=== PATIENT | female | born 1995 | race African-American/Black ===

== ENCOUNTER 2020-04-09 06:16 | Outpatient (CLI) | payer OTHER, SELFPAY ==
[2020-04-09 18:35] LABS: SARS-CoV-2 RNA PCR Negative
== END 2020-04-09 06:17 | disposition home or self-care (01) ==
LOC: ANHCOVIDDT 06:17
PROVIDERS: Visit Provider Obstetrics & Gynecology
DX: Z01.818 Encounter for other preprocedural examination (principal); O02.1 Missed abortion; Z11.59 Encounter for screening for other viral diseases
CPT/HCPCS: 87635; U0003

== ENCOUNTER 2020-04-09 09:18 | Outpatient (CLI) | payer OTHER, SELFPAY | END 2020-04-09 09:19 | disposition home or self-care (01) | LOC: ANHSURGERY 09:27 | PROVIDERS: PCP Internal Medicine Gastroenterology; Visit Provider Obstetrics & Gynecology | DX: O02.1 Missed abortion (principal) | CPT/HCPCS: 36415; 86900; 86901 ==

== ENCOUNTER 2020-04-10 00:51 | Day surgery (SDC) | payer OTHER, SELFPAY ==
[2020-04-08 12:23] VITALS: BMI 21.8
[2020-04-10 09:45] VITALS: BP 123/71; PULSE 87; RESP 16; TEMP 37.2; O2SAT 100
[2020-04-10] MEDS: IBUPROFEN IV 800 MG/200 ML 800 MG/200 ML BAG 400 MG IVPB (10:05)
--- NOTE | 2020-04-10 10:32 | WPDANESEPPF ---
Anes - Initial Pre Proc Eval Procedure: Operation Date: 04/10/20 11:30 Proposed Procedures p Suction Dilatation and Curettage - Jose J Collier MD Date/Time: 04/10/20 10:32 Surgeon: Jose J Collier MD Pre Op Diagnosis: missed ab Patient Data Age: 25 Gender: F Height: 5 ft 4 in Weight: 54.45 kg Last Vital Signs Temp 37.2 C 04/10/20 09:45 Pulse 87 04/10/20 09:45 Resp 16 04/10/20 09:45 BP 123/71 04/10/20 09:45 Pulse Ox 100 04/10/20 09:45 Allergies Allergy/AdvReac Type Severity Reaction Status Date / Time No Known Allergies Allergy Unverified 04/08/20 12:07 Home Medications Medication Instructions Recorded Confirmed Type No Home Medications 04/08/20 04/08/20 History Patient hx anesthesia problems: none Family hx anesthesia problems: none [facility] Family History Family History Mother Patient's mother is in good health Father Patient's father is in good health Sibling Patient's sister is in good health Patient's brother is in good health Social History Social History Smoking status: Current every day smoker Alcohol intake: never Anes - Eval Final PreProcedure Day of Procedure 04/10/20 10:32 Patient weight: normal Heart: regular rate and rhythm Lungs: clear to auscultation Airway: Mallampati scale class 1 Neurological: alert and oriented Last oral intake: >/= 8 hours ASA classification: II Emergent: no Anesthetic plan: proceed Anesthesia type and monitoring: general GIVS and standard monitoring Informed Consent: The patient's anesthetic plan and its attendant risks and benefits were discussed with the patient/family/POA. Questions were solicited and answers provided to the satisfaction of the patient/family/POA.
--- NOTE | 2020-04-10 10:43 | WPDHPUPDATE1 ---
History and Physical Update Update Date/Time: 04/10/20 10:43 History and Physical has been reviewed, including an updated exam of the patient. There are NO changes in the patient's condition. Risks, benefits, and alternatives have been discussed and questions answered. Patient agrees to proceed with procedure.
--- NOTE | 2020-04-10 11:26 | P.OP_ITS ---
Procedure Note - Detailed Date of procedure: 04/10/20 Pre-op diagnosis: missed ab Post-op diagnosis: same Procedure performed: Suction D&C Description of procedure: The patient was taken the operating room. She has prepped and draped in dorsal lithotomy position after induction of mac anesthesia. A speculum was placed in the vagina. The cervix was grasped with a tenaculum. The cervix was injected at 3 and 9:00 a.m. with 1% lidocaine. The cervix was dilated up to 8 mm using Merida dilators. An 8 curved plastic suction curette was then applied to the intrauterine cavity. All of the surfaces in the intrauterine cavity were curettage under VAC. A sharp medium-size curette was then used to curettage all the surfaces to confirmed the removal of all the products conception. When all surfaces for bleed to be clean the curette was r emoved. The suction curette was then reapplied to remove all the debris. The procedure was terminated. The tenaculum was removed. The speculum was removed. The patient tolerated the procedure well. She was taken recovery room in stable condition. Anesthesia: MAC Surgeon: Jose J Collier MD Estimated blood loss (mL): 25 Drains: No Packing: No Pathology: yes Complications: No immediate complications Condition: stable Disposition: PACU Findings: Normal vulva vagina and cervix. The moderate amounts of products conception. 8 cm uterus.
[2020-04-10 11:30] VITALS: BP 90/43; PULSE 64; RESP 12; O2SAT 100
[2020-04-10] MEDS: LACTATED RINGERS 1,000 ML 30 ML IV CONT (11:30)
[2020-04-10 12:00] VITALS: BP 102/45; PULSE 68; RESP 14
[2020-04-10 12:30] VITALS: BP 103/60; PULSE 62; RESP 18
== END 2020-04-10 13:00 | disposition home or self-care (01) ==
PROVIDERS: PCP Internal Medicine Gastroenterology; Visit Provider Obstetrics & Gynecology
PROC: (CPT 59820; principal; 2020-04-10 11:30)
DX: O02.1 Missed abortion (principal)
CPT/HCPCS: 59820; 88305; A9270; J0131; J1100; J1741; J2250; J2405; J2704; J3010; J7120

== ENCOUNTER 2024-01-23 19:23 | Observation (INO) | payer OTHER, SELFPAY ==
[2024-01-23 21:06] VITALS: BMI 30.2
--- NOTE | 2024-01-23 21:06 | OBADM ---
This patient, Janelle Kaiser, admitted to the OB room Labor/Delivery/Recovery 106 for observation. Patient/family oriented to hospital policies and general routines including ID bracelet, bed and alarms, visiting hours, pain management, procedures, bathroom and other care routines, personal items, smoking policy, room service/diet, and visiting hours. Patient/Family are encouraged to report perceived risks to care and to ask questions if they do not understand what they are told or what they should do.
--- NOTE | 2024-01-24 23:28 | PM.OBTRLD ---
OB - Triage/Final Diagnosis Visit Information Comments/Additional reasons for admission: I have assessed the risk for this patient, Janelle Kaiser, and determined that she would benefit from observation care. Final Diagnosis (1) Irregular contractions: Code(s): O47.9 - False labor, unspecified Status: Acute
== END 2024-01-23 21:16 | disposition home or self-care (01) ==
PROVIDERS: Admitting Provider Obstetrics & Gynecology; Visit Provider Obstetrics & Gynecology
DX: O47.1 False labor at or after 37 completed weeks of gestation (principal); Z3A.40 40 weeks gestation of pregnancy
CPT/HCPCS: G0378; G0379

== ENCOUNTER 2024-01-25 20:58 | Inpatient (IN) | payer OTHER, SELFPAY ==
[2024-01-25] VITALS (39 sets, daily range): BP systolic 106–164; BP diastolic 64–144; PULSE 48–145; TEMP 36.6; O2SAT 79–100; BMI 29.1
[2024-01-25] MEDS: LACTATED RINGERS 1,000 ML 125 ML IV CONT ×2 (21:15→23:01)
[2024-01-25 21:29] LABS: Basophils Percent Auto 0.3 % (0.2-1.2); Eosinophils Absolute Auto 0.1 K/mm3 (0-0.3); Eosinophils Percent Auto 0.7 % (0-4.4); Hematocrit 31.2 % (37.0-47.0); Hemoglobin 10.1 g/dL (12.0-15.0); Immature Granulocyte Absolute 0.06 K/mm3 (0.00-0.031); Immature Granulocyte Percent A 0.8 % (0-0.5); Lymphocytes Absolute Auto 2.32 K/mm3 (0.9-3.2); Lymphocytes Percent Auto 30.5 % (18.3-44.2); Mean Corpuscular HGB Conc 32.4 g/dl (32-36); Mean Corpuscular Hemoglobin 29.8 pg (26-34); Mean Platelet Volume 10.6 fl (7.4-10.4); Monocytes Absolute Auto 0.6 K/mm3 (0.1-0.6); Monocytes Percent Auto 7.5 % (2.6-8.5); Neutrophils Absolute Auto 4.6 K/mm3 (1.3-6.7); Neutrophils Percent Auto 60.2 % (45.5-73.1); Platelet Count Result 197 k/mm3 (150-375); Red Blood Count 3.39 M/mm3 (4.2-5.4); Red Cell Distribution Width 13.7 % (11.5-14.5); White Blood Count 7.6 K/mm3 (4.5-10.0)
[2024-01-25] MEDS: AMPICILLIN 2 GM/NS 100 ML 2 GM/100 ML BAG IVPB (21:36)
--- NOTE | 2024-01-25 21:55 | LDADM ---
This patient, Janelle Kaiser, was admitted to Labor/Delivery/Recovery 105 on 01/25/24 at 20:58. Plans for labor, pain management and were discussed with patient. Patient/family oriented to hospital policies and general routines including ID bracelet, bed and alarms, visiting hours, pain management, procedures, bathroom and other care routines, personal items, smoking policy, room service/diet and guest tray routines, infant security routines, and visiting hours. Patient/Family are encouraged to report perceived risks to care and to ask questions if they do not understand what they are told or what they should do. See OBIX for further documentation.
--- NOTE | 2024-01-25 22:42 | WPDANESEPP ---
Anes - Eval Pre Procedure Procedure: Labor epidural Date/Time: 01/25/24 22:42 Surgeon: Rafita Preop Diagnosis: Abdominal pain with contractions Pre Op Diagnosis: Contractions Patient Data Age: 29 Gender: F Height: 1.63 m Weight: 77 kg Last Vital Signs Pulse 77 01/25/24 22:31 BP 106/64 01/25/24 22:31 Pulse Ox 97 01/25/24 22:40 O2 Del Method Room Air 01/25/24 21:55 Allergies Allergy/AdvReac Type Severity Reaction Status Date / Time No Known Allergies Allergy Verified 01/25/24 21:51 Home Medications Medication Instructions Recorded Confirmed Type vitamins no.175-iron 1 tablet PO DAILY 12/06/23 01/25/24 History fumarate 29 mg-folic acid 1 mg tablet ( Complete) Laboratory Tests 01/25/24 21:24 WBC 7.6 K/mm3 (4.5-10.0) RBC 3.39 L M/mm3 (4.2-5.4) Hgb 10.1 L g/dL (12.0-15.0) Hct 31.2 L % (37.0-47.0) MCV 92.0 fl (80-100) MCH 29.8 pg (26-34) MCHC 32.4 g/dl (32-36) RDW 13.7 % (11.5-14.5) Plt Count 197 k/mm3 (150-375) MPV 10.6 H fl (7.4-10.4) Immature Gran % (Auto) 0.8 H % (0-0.5) Neut % (Auto) 60.2 % (45.5-73.1) Lymph % (Auto) 30.5 % (18.3-44.2) Sutter % (Auto) 7.5 % (2.6-8.5) Eos % (Auto) 0.7 % (0-4.4) Baso % (Auto) 0.3 % (0.2-1.2) Lymph # (Auto) 2.32 K/mm3 (0.9-3.2) Sutter # (Auto) 0.6 K/mm3 (0.1-0.6) Eos # (Auto) 0.1 K/mm3 (0-0.3) Baso # (Auto) 0.0 K/mm3 (0.0-0.1) Abs Immat Gran (auto) 0.06 H K/mm3 (0.00-0.031) Absolute Neuts (auto) 4.6 K/mm3 (1.3-6.7) Absolute Nucleated RBC 0.0 K/mm3 (0.0-0.012) Nucleated RBC % 0.0 % (0.0-0.2) RPR Pending : gestational age HCG: positive Patient hx anesthesia problems: none Family hx anesthesia problems: none Results Review: All pre-operative results and documents have been reviewed as part of the pre-operative evaluation. [facility] Past Medical History Medical History IBS (irritable colon syndrome) Post depression STD (female) Family History Family History Mother Patient's mother is in good health Father Patient's father is in good health Sibling Patient's sister is in good health Patient's brother is in good health Social History Social History Smoking status: Former smoker Alcohol intake: never Substance use: never Do You Feel Safe in your Home?: Yes Lack of Transportation: No Lack of Food: Never True Current Housing: I Have Housing Concerned About Future Housing: No Difficulty Paying Gas/Electric Bills: No Difficulty Paying for Meds: No Currently Unemployed: No Education: High School Diploma/GED Difficulty w/ Childcare or Family Care: No Spiritual care concerns: No Exam Day of Procedure 01/25/24 22:42 Patient weight: overweight
[2024-01-25] MEDS: OXYTOCIN 30 UNITS/NS 500 ML 30 UNITS/500 ML BAG IV CONT (23:09)
[2024-01-26] VITALS (293 sets, daily range): BP systolic 96–174; BP diastolic 32–132; PULSE 28–261; RESP 18; TEMP 36.6–37.7; O2SAT 78–100
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
[2024-01-26] MEDS: AMPICILLIN 1 GM/NS 50 ML 1 GM/50 ML BAG IVPB ×5 (01:31→16:55)
[2024-01-26] MEDS: hydrOXYzine HCL 25 MG TABLET PO (01:40)
[2024-01-26] MEDS: LACTATED RINGERS 1,000 ML 125 ML IV CONT ×3 (04:23→15:59)
--- NOTE | 2024-01-26 07:57 | PM.IMHP ---
H&P: HPI History of Present Illness Date/Time: 01/26/24 07:57 Chief Complaint: contractions Narrative: Patient is a 29 year old at 40 weeks gestation who presents for contractions. She reports contractions worsening throughout the day. Reports good movement, no LOF or VB. has been complicated by anemia, s/p Fe infusions. On arrival FHR tachycardic to 170. Moderate variability. No fevers or chills. Review of Systems Review of Systems: All systems reviewed & are unremarkable except as noted in HPI and below PMFSH Past Medical History Medical History IBS (irritable colon syndrome) Post depression STD (female) Family History Family History Mother Patient's mother is in good health Father Patient's father is in good health Sibling Patient's sister is in good health Patient's brother is in good health Social History Social History Smoking status: Former smoker Alcohol intake: never Substance use: never Do You Feel Safe in your Home?: Yes Lack of Transportation: No Lack of Food: Never True Current Housing: I Have Housing Concerned About Future Housing: No Difficulty Paying Gas/Electric Bills: No Difficulty Paying for Meds: No Currently Unemployed: No Education: High School Diploma/GED Difficulty w/ Childcare or Family Care: No Spiritual care concerns: No Meds Home Medications and Allergies Home Medications Medication Instructions Recorded Confirmed Type vitamins no.175-iron 1 tablet PO DAILY 12/06/23 01/25/24 History fumarate 29 mg-folic acid 1 mg tablet ( Complete) Allergies Allergy/AdvReac Type Severity Reaction Status Date / Time No Known Allergies Allergy Verified 01/25/24 21:51 Vital Signs Vital Signs - 24 hr 01/25/24 20:42 01/25/24 20:46 01/25/24 22:22 Temperature Pulse Rate 71 Blood Pressure 120/72 Pulse Oximetry 99 98 Oxygen Delivery 01/25/24 22:24 01/25/24 22:31 01/25/24 22:34 Temperature Pulse Rate 76 77 Blood Pressure 135/84 106/64 Pulse Oximetry 97 Oxygen Delivery 01/25/24 22:40 01/25/24 22:43 01/25/24 22:44 Temperature Pulse Rate 107 H 102 H Blood Pressure 133/81 139/100 H Pulse Oximetry 97 Oxygen Delivery 01/25/24 22:45 01/25/24 22:48 01/25/24 22:48 Temperature Pulse Rate 99 96 Blood Pressure 147/79 H 157/93 H Pulse Oximetry 97 94 98 Oxygen Delivery 01/25/24 22:48 01/25/24 22:50 01/25/24 22:53 Temperature Pulse Rate 99 108 H Blood Pressure 143/85 H 150/103 H Pulse Oximetry 97 91 97 Oxygen Delivery 01/25/24 22:53 01/25/24 22:54 01/25/24 22:55 Temperature Pulse Rate Blood Pressure Pulse Oximetry 97 97 98 Oxygen Delivery 01/25/24 22:58 01/25/24 23:00 01/25/24 23:03 Temperature Pulse Rate 79 94 92 Blood Pressure 142/99 H 142/93 H 141/102 H Pulse Oximetry 96 Oxygen Delivery 01/25/24 23:05 01/25/24 23:06 01/25/24 23:08 Temperature 97.9 F Pulse Rate 90 145 H Blood Pressure 160/101 H 124/93 H Pulse Oximetry 97 96 Oxygen Delivery 01/25/24 23:11 01/25/24 23:12 01/25/24 23:12 Temperature Pulse Rate 99 Blood Pressure 144/87 H Pulse Oximetry 79 L 98 Oxygen Delivery 01/25/24 23:13 01/25/24 23:15 01/25/24 23:16 Temperature Pulse Rate 117 H 98 Blood Pressure 144/116 H 143/71 H Pulse Oximetry 97 Oxygen Delivery 01/25/24 23:18 01/25/24 23:20 01/25/24 23:23 Temperature Pulse Rate 88 98 Blood Pressure 108/86 118/98 H 128/111 H Pulse Oximetry 98 Oxygen Delivery 01/25/24 23:27 01/25/24 23:28 01/25/24 23:32 Temperature Pulse Rate 137 H Blood Pressure 157/140 H 164/144 H Pulse Oximetry 91 100 Oxygen Delivery 01/25/24 23:33 01/25/24 23:37
[2024-01-26] MEDS: SODIUM CHLORIDE 0.9% IV 300 ML 600 ML I-UTERINE (09:27)
[2024-01-26] MEDS: ONDANSETRON INJ 4 MG/2 ML VIAL IV PUSH (10:19)
[2024-01-26 11:30] LABS: Rapid Plasma Reagin Non-Reactive (NonReactive)
--- NOTE | 2024-01-26 18:56 | PM.OBPRVD ---
OB - Vaginal Delivery Note Procedure Delivery date: 01/26/24 Events: Positive Group B Strep (GBS) Intrapartal Events: Decelerations and Other (meconium) Induction method: None Delivery augmentation: Pitocin Delivery monitor: External FHT and Internal Uterine Route of delivery: Episiotomy description: None Laceration Description: None Specimen: Yes Quantitative Blood Loss (ml): 50 Anesthesia type: Epidural Disposition: Floor Baby Date of : 01/26/24 Time of : 18:48 Weeks of gestation at delivery: 40 Infant gender: Male Weight (pounds): 7 Weight (ounces): 14 presentation: vertex position: Left Occiput Anterior Placenta delivery description: Spontaneous Cord Vessel Description: 3 Vessels, Nuchal Cord, Loose and Reduced score one minute: 7 score five minutes: 9 Narrative: baby to warmer for peds evaluation for meconium, mother and baby in stable condition
[2024-01-26] MEDS: OXYTOCIN 30 UNITS/NS 500 ML 30 UNITS/500 ML BAG 125 UNITS IV CONT (19:11)
--- NOTE | 2024-01-26 21:07 | OBPPTRN ---
Patient transferred to post room #283 via wheelchair. Support person present. Oriented to unit, room, information board, rooming in, admission packet and security measures. Patient verbalizes understanding.
[2024-01-26] MEDS: ACETAMINOPHEN 325 MG TABLET 650 MG PO (21:40)
[2024-01-27 04:21] VITALS: BP 116/68; PULSE 76; RESP 18; TEMP 36.6; O2SAT 98
[2024-01-27 05:33] LABS: Hematocrit 30.3 % (37.0-47.0)
[2024-01-27] MEDS: IBUPROFEN 600 MG TABLET PO ×2 (06:35→18:12)
[2024-01-27] MEDS: POLYSACCHARIDE IRON COMPLEX 150 MG CAPSULE PO ×2 (06:35→18:11)
[2024-01-27] MEDS: MULTIVIT/MIN/PREN/FOL AC/IRON TABLET 1 TAB PO (06:35)
[2024-01-27] MEDS: DOCUSATE SODIUM 100 MG CAPSULE PO ×2 (06:36→16:13)
[2024-01-27 07:06] VITALS: BP 123/80; PULSE 54; RESP 18; TEMP 36.4; O2SAT 99
--- NOTE | 2024-01-27 07:48 | PM.OBPNVD ---
OB - PN: Subj Subjective Date/time seen: 01/27/24 07:48 Interval history: pp day 1 doing well OB - PN: Obj Data Labs 01/27/24 04:15 Labs: Laboratory Results - last 24 hr 01/25/24 01/27/24 21:24 04:15 Hgb 9.0 L Hct 30.3 L RPR Non-reactive OB - PN A/P Plan day: 1 Plan: routine care Time Spent With Patient Time: Total time spent is greater than 50% in coordination of care (as documented) at patient's floor/unit and/or counseling patient: Review of Systems Review of Systems: All systems reviewed & are unremarkable except as noted in HPI and below Exam Const: General: cooperative, healthy appearing and comfortable Resp: Effort & Inspection: normal respiratory effort Cardio: Rate: regular rate GI: Other: soft Back/Spine/Pelvis: Back: no CVA tenderness Skin: General skin exam: normal color Extrem: General: normal to inspection Psych: Appearance: grossly normal
--- NOTE | 2024-01-27 08:05 | WPDANLDPN2 ---
Anes-Prog Note L&D Date/Time: 01/27/24 08:05 Comfortable throughout: labor and delivery Neuraxial method: epidural Epidural/Spinal procedure site: clean & non-tender Neuro status: Neuro function grossly intact. Cardiovascular status: normal Respiratory status: normal Airway patency: baseline Mental status: baseline Post-Op hydration status: normal Vital Signs: Last Vital Signs Temp 36.4 C 01/27/24 07:06 Pulse 54 L 01/27/24 07:06 Resp 18 01/27/24 07:06 BP 123/80 01/27/24 07:06 Pulse Ox 99 01/27/24 07:06 O2 Del Method Room Air 01/27/24 07:06 Pain score (VAS): 10 I/O: Intake & Output 01/26/24 01/27/24 01/27/24 23:59 07:59 15:59 Output Total 50 Balance -50 Post-procedural complaints: none Patient feedback: Patient satisfied with anesthetic care.
--- NOTE | 2024-01-27 11:46 | PC.NURSE ---
[id number] Introductions were made, then consulted with patient to assess needs related to . Mother shared she is experienced with other children and this one is pooping good. is in the bassinet rooting. RN suggested infant may need something and received consent to check a diaper and burp. Transitional stool was changed and was burped and offered the breast. Discussed with mother her?plans to feed?her , the?experience so far, and visual assessment shows the nipples are bruised. Reminded mother of the stage of bringing the baby close to mom's body and latching infant with a deeper latch to prevent nipple injury. Infant chooses to look at mother rather than breastfeed. Mother needs to use the restroom and requests infant be swaddled. is close to 16 hours old and has more than adequate stools while there's plenty of time for a void. Mother expresses large drops of milk from her breast. Primary RN enters for assessment and reported to encourage a deeper latch to protect the nipples. Resources provided for inpatient services with name written on the communication board. Mother voiced understanding of information and will call if there is a request for assistance.
[2024-01-27 12:42] VITALS: BP 128/89; PULSE 57; RESP 16; TEMP 36.8; O2SAT 97
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
[2024-01-27 18:40] VITALS: BP 143/80; PULSE 59; RESP 18; TEMP 36.8; O2SAT 100
[2024-01-28] MEDS: IBUPROFEN 600 MG TABLET PO ×2 (02:30→09:06)
[2024-01-28] MEDS: ACETAMINOPHEN 325 MG TABLET 650 MG PO ×2 (02:30→09:07)
--- NOTE | 2024-01-28 08:16 | PM.OBPNVD ---
OB - PN: Subj Subjective Date/time seen: 01/28/24 08:16 Interval history: pp day 2 doing well voiding without issue ready for discharge home OB - PN: Obj Data Labs 01/27/24 04:15 OB - PN A/P Plan day: 2 Plan: discharge home Time Spent With Patient Time: Total time spent is greater than 50% in coordination of care (as documented) at patient's floor/unit and/or counseling patient: Review of Systems Review of Systems: All systems reviewed & are unremarkable except as noted in HPI and below Exam Const: General: cooperative, healthy appearing and comfortable Resp: Effort & Inspection: normal respiratory effort Cardio: Rate: regular rate GI: Other: soft Skin: General skin exam: normal color Extrem: General: normal to inspection Psych: Appearance: grossly normal
--- NOTE | 2024-01-28 08:18 | PM.OBDSVD ---
DS: Admitting Diagnosis Discharge Date 01/28/24 Admitting Diagnosis tachycardia, early labor DS: Discharge Diagnosis Discharge Diagnosis (1) (spontaneous vaginal delivery): Code(s): O80 - Encounter for full-term uncomplicated delivery Status: Acute OB - DS: Summary OB Procedures : None OB Procedures Intrapartum: Spontaneous Vag Delivery OB Procedures: : None Peripartum Data Laceration Description: None Episiotomy description: None Time Spent with Patient Time attestation: Total time spent providing and/or coordinating discharge services: DS: Data Data Completed and Pending Pending studies at discharge: Pending at discharge 01/26/24 19:19 Surgical [PTH] Routine Discharge Plan Discharge Attending physician on discharge: Dangelo Eller Discharging Clinician: Dangelo Eller Patient Disposition: Home, Self-Care Activity: may shower and pelvic rest Diet: as tolerated Patient Instructions: Antibiotic Form Stand Alone Forms: General Discharge Information Follow-up/Referrals: Dangelo Eller MD [Physician] - 4 Weeks Discharge Medications: New docusate sodium 100 mg Capsule 100 mg PO BID PRN (Reason: Constipation) Qty: 60 0RF ibuprofen 600 mg Tablet 600 mg PO Q6H PRN (Reason: Cramping) Qty: 30 0RF Continued Complete 29-1 mg Tablet 1 tablet PO DAILY Date of admission: 01/25/24 20:58 Primary Care Provider: UNKNOWN,DOCTOR Admitting Provider: Dangelo Eller Attending physician on admission: Dangelo Eller Condition: Stable
[2024-01-28 08:25] VITALS: BP 150/91; PULSE 58; RESP 16; TEMP 36.6; O2SAT 99
[2024-01-28] MEDS: DOCUSATE SODIUM 100 MG CAPSULE PO (09:07)
[2024-01-28] MEDS: POLYSACCHARIDE IRON COMPLEX 150 MG CAPSULE PO (09:07)
[2024-01-28] MEDS: MULTIVIT/MIN/PREN/FOL AC/IRON TABLET 1 TAB PO (09:07)
--- NOTE | 2024-01-28 09:54 | PC.NURSE ---
[id number] Mother led the conversation with her experience so far, plan to feed her , and her ability to independently latch optimally without discomfort. Mother is feeding appropriately for growth of and understands stimulating to eat if needed. Infant has had appropriate feedings in the last 24 hours meets the outcomes for weight, output, blood sugar and jaundice at this time. Reinforced understanding of milk production, transition of milk, what to expect in the next 24-48 hours, typical behaviors for an in the 2nd 24 hours of life, signs of adequate intake, transition of stool, prevention/relief of engorgement, plugged ducts, mastitis, responsive watching for feeding cues, the different methods of stimulating infant to breastfeed 1-3 hours after the start of the last feeding, community resources, and when to call a provider using the resource of the feeding sheet along with the mom and baby guide. Mother voiced understanding of the information shared, is confident to continue effectively her at home, when to call for assistance, denies any additional assistance or education at this time. Reported to the Primary RN.
--- NOTE | 2024-01-28 10:22 | PC.NURSE ---
[id number] Mother requested a consult to assess the latch. Observation shows many sucks, no swallowing, and dimpling. Educated mother on these non-nutritive signs. Adjusted mother in a more comfortable position, adjusted infant and encouraged mother to use the U-hold bringing infant close to her body with a deeper latch. demonstrated swallowing and mother voiced hearing swallow sounds along with recognizing the drop in the lower jaw about every 3 sucks. Reiterated the importance of frequent with watching and listening for swallows. Expectations of the milk supply coming to full volume was reviewed. Educated mother with gentle breast shake, gentle compression, frequent milk removal, and breast massage to stimulate milk before and during . Deep latching, encouraged detaching if dimpling is visualized, then latching optimally. Mother has experience of 14 months. Reminders of the stage and the milk supply the first few days were reviewed. Mother voices she is more confident going home and what to watch for. Resources of the feeding sheet and feeding your pamphlet were reviewed for what she is looking for, when to call the care provider, and services.
[2024-01-28 10:30] VITALS: BP 141/86; PULSE 68; RESP 16; O2SAT 99
--- NOTE | 2024-01-28 12:25 | PC.NURSE ---
Patient received instruction on viewing the discharge video Mother & Baby Care, The First Two Weeks . Patient was given the opportunity and encouraged to ask questions. Patient verbalized understanding of information shared and has been given the mother/baby guide for home reference.
== END 2024-01-28 13:05 | disposition home or self-care (01) | DRG 560 ==
LOC: ANHLDR 21:01 → ANHOB2 01-26 21:52
PROVIDERS: Advanced Practice Midwife; Admitting Provider Obstetrics & Gynecology; Visit Provider Obstetrics & Gynecology
DX: O99.824 Streptococcus B carrier state complicating childbirth (principal); Z37.0 Single live birth; Z3A.40 40 weeks gestation of pregnancy; O77.0 Labor and delivery complicated by meconium in amniotic fluid; O99.02 Anemia complicating childbirth; D64.9 Anemia, unspecified; O36.8330 Maternal care for abnormalities of the fetal heart rate or rhythm, third trimester, not applicable or unspecified
CPT/HCPCS: 36415; 85014; 85018; 85025; 86592; 86850; 86900; 86901; 88307; A9270; J0290; J2405; J2590; J2795; J7030; J7120